=== PATIENT | male | born 1960 | race Caucasian/White ===

== ENCOUNTER 2016-07-13 21:19 | Observation (INO) | payer MEDICARE, OTHER ==
[~2016-07-13] VITALS: Ht 182.9 cm; Wt 103.4 kg
[2016-07-13 22:02] LABS: HEMOGLOBIN 15.4 gm/dl (14.0-17.5); RED BLOOD COUNT 5.11 M/UL (4.20-5.50); WHITE BLOOD COUNT 7.5 K/UL (4.5-11.0)
[2016-07-13 22:21] LABS: BUN/CREATININE RATIO 20 (0-10)
[2016-07-14] MEDS ORDERED: LISINOPRIL20 MG PO (06:05)
[2016-07-14] MEDS ORDERED: FENOFIBRATE160 MG PO (06:05)
[2016-07-14] MEDS ORDERED: TENORMIN 50 MG50 MG PO (06:06)
[2016-07-14] MEDS ORDERED: FISH OIL 1,0001 EACH PO (06:06)
[2016-07-14] MEDS ORDERED: DIABETA 5 MG TAB5 MG PO (06:07)
[2016-07-14] MEDS ORDERED: GLUCOPHAGE 500500 MG PO (06:07)
[2016-07-14] MEDS ORDERED: JANUVIA 100 MG100 MG PO (06:08)
[2016-07-14] MEDS ORDERED: VALACYCLOVIR500 MG PO (06:08)
[2016-07-14] MEDS ORDERED: HYDROCHLOROTHIA25 MG PO (06:09)
[2016-07-14] MEDS ORDERED: PRAVACHOL20 MG PO (06:10)
[2016-07-14] MEDS ORDERED: ALPHAGAN P5 ML OU (06:13)
[2016-07-14] MEDS ORDERED: LATANOPROST2.5 ML OU (06:14)
[2016-07-15 05:26] LABS: HEMOGLOBIN 15.3 gm/dl (14.0-17.5); RED BLOOD COUNT 5.06 M/UL (4.20-5.50); WHITE BLOOD COUNT 6.3 K/UL (4.5-11.0)
[2016-07-15 05:51] LABS: BUN/CREATININE RATIO 20 (0-10)
[2016-07-15] MEDS ORDERED: LIPITOR TAB 2020 MG PO (10:47)
[2016-07-15] MEDS ORDERED: XARELTO20 MG PO (10:50)
== END 2016-07-15 11:33 | disposition home or self-care (01) ==
LOC: ER1 21:19 → ZEROF 07-14 01:03 → PROG CARE 07-14 01:03
PROVIDERS: Emergency Medicine; Student in an Organized Health Care Education/Training Program; ADMIT Internal Medicine
DX: I48.91 Unspecified atrial fibrillation (principal); I10 Essential (primary) hypertension; E11.9 Type 2 diabetes mellitus without complications; E78.5 Hyperlipidemia, unspecified; Z87.891 Personal history of nicotine dependence; Z79.899 Other long term (current) drug therapy; Z90.49 Acquired absence of other specified parts of digestive tract; Z90.79 Acquired absence of other genital organ(s); Z98.49 Cataract extraction status, unspecified eye
CPT/HCPCS: ECHO; 36415; 71010; 80053; 80061; 82550; 82553; 82962; 83735; 83874; 83880; 84443; 84484; 85025; 85027; 85379; 85610; 85730; 93005; 93306; 96372; 96374; 99291; G0378; J1650

== ENCOUNTER 2016-09-10 10:40 | Emergency (ER) | payer MEDICARE, OTHER ==
[~2016-09-10 10:40] MED LIST: ALPHAGAN P5 ML OU; DIABETA 5 MG TAB5 MG PO; FENOFIBRATE160 MG PO; FISH OIL 1,0001 EACH PO; GLUCOPHAGE 500500 MG PO; HYDROCHLOROTHIA25 MG PO; JANUVIA 100 MG100 MG PO; LATANOPROST2.5 ML OU; LIPITOR TAB 2020 MG PO; LISINOPRIL20 MG PO; PRAVACHOL20 MG PO; TENORMIN 50 MG50 MG PO; VALACYCLOVIR500 MG PO; XARELTO20 MG PO
[2016-09-10 11:34] LABS: HEMOGLOBIN 15.2 gm/dl (14.0-17.5); RED BLOOD COUNT 5.11 M/UL (4.20-5.50); WHITE BLOOD COUNT 6.1 K/UL (4.5-11.0)
[2016-09-10 11:57] LABS: BUN/CREATININE RATIO 22 (0-10)
== END 2016-09-10 13:31 | disposition home or self-care (01) ==
LOC: ER1 10:40
PROVIDERS: Emergency Medicine
DX: R00.2 Palpitations (principal)
CPT/HCPCS: 36415; 71010; 80053; 82550; 82553; 83874; 84484; 85025; 93005; 99285; J2060

== ENCOUNTER 2016-09-29 18:02 | Emergency (ER) | payer MEDICARE, OTHER | END 2016-09-29 20:30 | disposition home or self-care (01) | LOC: ER1 18:02 | DX: L73.9 Follicular disorder, unspecified (principal) | CPT/HCPCS: 99282 ==

== ENCOUNTER 2020-06-16 07:19 | Emergency (ER) | payer MEDICARE, OTHER ==
[~2020-06-16 07:19] MED LIST changes: +CLEOCIN HCL300 MG PO; +NAPROSYN500 MG PO; +TESSALON PERLE100 MG PO; +ZITHROMAX250 MG PO; +ZOFRAN4 MG PO
[2020-06-16 08:01] LABS: HEMOGLOBIN 13.7 gm/dl (14.0-17.5); RED BLOOD COUNT 4.95 M/UL (4.20-5.50); WHITE BLOOD COUNT 8.9 K/UL (4.5-11.0)
[2020-06-16 08:30] LABS: BUN/CREATININE RATIO 17 (0-10)
== END 2020-06-16 12:15 | disposition home or self-care (01) ==
LOC: ER1 07:19
PROVIDERS: Emergency Medicine
DX: R07.89 Other chest pain (principal); R11.0 Nausea; R06.02 Shortness of breath; Z20.822 Contact with and (suspected) exposure to COVID-19; R42 Dizziness and giddiness; I11.9 Hypertensive heart disease without heart failure; E11.9 Type 2 diabetes mellitus without complications; F17.210 Nicotine dependence, cigarettes, uncomplicated; Z85.46 Personal history of malignant neoplasm of prostate
CPT/HCPCS: 71045; 80053; 82550; 82553; 83690; 83735; 83874; 83880; 84100; 84484; 85025; 85379; 85610; 85730; 93005; 99285; U0002

== ENCOUNTER 2021-04-30 11:36 | Emergency (ER) | payer MEDICARE, OTHER ==
[2021-04-30 12:08] LABS: HEMOGLOBIN 13.5 gm/dl (14.0-17.5); RED BLOOD COUNT 4.92 M/UL (4.20-5.50); WHITE BLOOD COUNT 6.8 K/UL (4.5-11.0)
[2021-04-30 12:23] LABS: BUN/CREATININE RATIO 18 (0-10)
== END 2021-04-30 15:56 | disposition home or self-care (01) ==
LOC: ER1 11:36
PROVIDERS: Emergency Medicine
DX: R00.2 Palpitations (principal); I48.91 Unspecified atrial fibrillation; I10 Essential (primary) hypertension
CPT/HCPCS: 71045; 80053; 81001; 82550; 82553; 83874; 84484; 85025; 93005; 96374; 99285

== ENCOUNTER → 2021-05-02 | Outpatient (CLI) | payer MEDICARE, OTHER | LOC: HEART 5 14:33 | DX: R00.2 Palpitations (principal) ==